=== PATIENT | male | born 2000 | race Caucasian/White ===

== ENCOUNTER 2022-11-08 09:02 | Emergency (ER) | payer OTHER ==
[~2022-11-08] VITALS: Ht 180.3 cm; Wt 64.4 kg
[~2022-11-08 09:02] MED LIST: [UNRECOGNIZED DRUG - CODE]
[2022-11-08 09:19] VITALS: BP 133/61
--- NOTE | 2022-11-08 09:33 | NUR ---
PT. WITH RESPIRATORY DIFF., NOT ABLE TO SWALLOW, NO DROOLING NOTED IN TRIAGE.
[2022-11-08] MEDS ORDERED: DEXAMETHASONE 10 MG/ML VIAL IM ONE (10:10)
[2022-11-08] MEDS ORDERED: IBUPROFEN CHILDRENS 100 MG/5 ML UDC PO ONE (10:10)
[2022-11-08] MEDS ORDERED: NAPR-54 PO (10:16)
[2022-11-08] MEDS ORDERED: ACET-8905 PO (10:16)
[2022-11-08] MEDS ORDERED: PHEN177S23 PO (10:16)
--- NOTE | 2022-11-08 10:52 | NUR ---
Patient discharged with v/s stable. Written and verbal after care instructions given and explained. Patient alert, oriented and verbalized understanding of instructions. Ambulatory with to home. All questions addressed prior to discharge. ID band removed. Patient advised to follow up with PMD. Rx of NAPROSYN, VICODIN, CHLORACEPTIC SPRAY given. Patient educated on indication of medication including possible reaction and side effects. Opportunity to ask questions provided and answered.
== END 2022-11-08 10:52 | disposition home or self-care (01) ==
LOC: MED 09:02
DX: J36 Peritonsillar abscess (principal); J45.909 Unspecified asthma, uncomplicated; Z79.899 Other long term (current) drug therapy
CPT/HCPCS: 96372; 99283; J1100